=== PATIENT | male | born 1940 | race Caucasian/White ===

== ENCOUNTER 2018-06-12 14:26 | Inpatient (IN) | payer MEDICARE, BC ==
[2018-06-12] MEDS ORDERED: BABY ASPIRIN 81 MG CHEW PO ONE (15:30)
[2018-06-12] MEDS ORDERED: Sodium Chloride 0.9% 1000 ML 1,000 ML IV STA (15:30)
[2018-06-12 15:37] LABS: BASOPHIL % 0.1 % (0.0-0.4); Basophil (Absolute #) 0.01 (0-0.4); Eosinophil % 0.6 % (0.00-5.0); Eosinophil (Absolute #) 0.05 (0-0.5); Hemoglobin 11.3 gm/dl (12.5-18.0); INR 1.26 (0.8-3.0); Lymphocyte (Absolute #) 0.97 (1.0-4.6); Mean Corpuscular Hgb Concent. 32.3 g/dl (32-36); Mean Platelet Volume 10.4 fl (6-9.5); Monocyte (Absolute #) 1.31 (0.0-1.3); Monocytes % 16.3 % (0.0-12.0); PROTIME 14.7 SECONDS (8.83-12.87); Platelet Count 236 K/mm3 (150-450); Red Blood Count 3.89 M/mm3 (4.1-5.6); Red Cell Distribution Width 13.7 % (11.5-14.0); White Blood Count 8.1 K/mm3 (4.0-10.5)
--- NOTE | 2018-06-12 15:38 | ERPHSYRPT ---
- History of Present Illness Time Seen by Provider: 06/12/18 15:30 Source: patient Exam Limitations: no limitations Patient Subjective Stated Complaint: PT states "Yesterday I started to have this pain on the right side of my chest. When I breath deep it hurts." Triage Nursing Assessment: Pt alert and oriented X 3, skin pwd. PT ambualtes with a slow steady gait, able to speak in clear full sentences. Pt in no respiratory distress. Physician History: 77-year-old white male with history of diabetes type 2, arthritis, diverticulitis, GERD arrives with complaint of pain in the right side of his chest described as sharp worse with deep breathing symptoms since yesterday he denies any shortness of breath nausea or vomiting. 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, history of melanoma and other skin issues Past surgical history includes orthopedic surgery, back surgery Timing/Duration: yesterday Severity: moderate Modifying Factors: Improves With: other (worse with deep breathing) Associated Symptoms: chest pain (Pain right chest with breathing), No nausea, No vomiting, No abdominal pain, No shortness of breath, No heartburn, No diaphoresis, No cough, No chills, No fever, No headaches, No loss of appetite, No malaise, No syncope, No seizure, No weakness Allergies/Adverse Reactions: No Known Drug Allergies Allergy (Verified 06/12/18 14:41) Home Medications: Amitriptyline HCl 50 mg DAILY 02/28/14 [History] Amlodipine Bes/Olmesartan Med [Shamir 10-20 mg Tablet] 1 ea DAILY 02/28/14 [ History] Clonazepam [Klonopin] 1 mg DAILY 02/28/14 [History] Clopidogrel Bisulfate 75 mg [PLAVIX 75 MG Tablet] 75 mg DAILY 02/28/14 [ History] Colesevelam HCl 625 mg [Welchol 625 mg] 625 mg TID 02/28/14 [History] Enalapril/Hydrochlorothiazide [Enalapril-Hctz 5-12.5 mg Tab] 1 ea DAILY [History] Fluocinonide/Emollient Base [Fluocinonide-Emol 0.05% Cream] 60 gm BID 02/28/14 [ History] Glimepiride 4 mg [Amaryl 4 mg] 4 mg DAILY 02/28/14 [History] Hydrocodone Bit/Acetaminophen [[facility] 5-325 Tablet] 1 ea QID 02/28/14 [History] Meclizine HCl 25 mg [Antivert 25 mg] 25 mg TID 02/28/14 [History] Metformin HCl 500 mg [Glucophage 500 MG] 500 mg DAILY 02/28/14 [History] Tiagabine HCl 4 mg [Gabitril 4 MG] 4 mg DAILY 02/28/14 [History] cycloSPORINE [Restasis] 1 ea DAILY 02/28/14 [History] Hx Tetanus, Diphtheria Vaccination/Date Given: No Hx Influenza Vaccination/Date Given: No Hx Pneumococcal Vaccination/Date Given: No Immunizations Up to Date: Yes - Review of Systems Constitutional: No Fever, No Chills Eyes: No Symptoms Ears, Nose, & Throat: No Symptoms Respiratory: Other (pain right chest with breathing), No Cough, No Cyanosis, No Dyspnea, No Dyspnea on Exertion ([place]ANTE), No Stridor, No Wheezing Cardiac: Chest Pain ( sharp pain right chest with breathing), No Edema, No Palpitations, No Syncope, No Orthopnea, No PND, No Other Abdominal/Gastrointestinal: No Abdominal Pain, No Nausea, No Vomiting, No Diarrhea Genitourinary Symptoms: No Dysuria Musculoskeletal: No Back Pain, No Neck Pain Skin: No Symptoms, No Rash Neurological: No Dizziness, No Focal Weakness, No Sensory Changes Psychological: No Symptoms Endocrine: No Symptoms All Other Systems: Reviewed and Negative - Past Medical History Pertinent Past Medical History: Yes Endocrine Medical History: Diabetes Type II Musculoskeletal History: Arthritis, Osteoarthritis GI Medical History: Diverticulitis, GERD Other Medical History: blind in lt eye due to blood vessel issue. melanoma and other skin issues - Past Surgical History Past Surgical History: Yes Musculoskeletal: Orthopedic Surgery Other Surgical History: back surgery. esophageal stretch - Social History Smoking Status: Smoker, status unknown Exposure to second hand smoke: No Drug Use: none Patient Lives Alone: No - Nursing Vital Signs Nursing Vital Signs: Initial Vital Signs Temperature 100.9 F 06/12/18 14:34 Pulse Rate 132 H 06/12/18 14:34 Respiratory Rate 20 06/12/18 14:34 Blood Pressure 107/77 06/12/18 14:34 O2 Sat by Pulse Oximetry 94 L 06/12/18 14:34 Pain Scale Pain Intensity 6 - Physical Exam General Appearance: mild distress Eye Exam: PERRL/EOMI, eyes nml inspection Ears, Nose, Throat Exam: normal ENT inspection, TMs normal, pharynx normal, moist mucous membranes Neck Exam: normal inspection, non-tender, supple, full range of motion Respiratory Exam: airway intact, diminished breath sounds, other (Pain right chest with deep breathing), No chest tenderness, No lungs clear, No respiratory distress, No prolonged expirations, No crackles/rales, No rhonchi, No wheezing, No stridor, No pleural rub Cardiovascular Exam: normal heart sounds, normal peripheral pulses, capillary refill <2 sec Gastrointestinal/Abdomen Exam: soft, normal bowel sounds, No tenderness, No mass Back Exam: normal inspection, normal range of motion, No CVA tenderness, No vertebral tenderness Extremity Exam: normal inspection, normal range of motion, pelvis stable Neurologic Exam: alert, oriented x 3, cooperative, estimator binding II-XII nml as tested, normal mood/affect, nml cerebellar function, nml station & gait, sensation nml, No motor deficits Skin Exam: normal color, warm, dry, No rash Lymphatic Exam: No adenopathy SpO2 Interpretation: normal (94%) SpO2: 94 Oxygen Delivery: Room Air - Course Nursing assessment & vital signs reviewed: Yes EKG Interpreted by Me: RATE (134 bpm), Sinus Tach, Other (EKGsinus tachycardia, 134 bpm, axis indeterminate, no acute ST or T wave changes, right bundle branch block) - Radiology Exams Chest X-ray Interpretation: Discussed w/ radiologist (chest x-ray: New right lung airspace disease. Stable right hemidiaphragm elevation with adjacent discoid atelectasis. Remaining heart, lung, and bony thorax unremarkable) Ordered Tests: Active Orders 24 hr Category Date Time Status Behaviorist STAT Care 06/12/18 15:31 Active EKG-ER Only STAT Care 06/12/18 15:30 Active IV Insertion STAT Care 06/12/18 15:30 Active Pulse Oximetry (ED) STAT Care 06/12/18 15:30 Active CHEST 1 VIEW (PORTABLE) Stat Exams 06/12/18 15:31 Completed BLOOD CULTURE Stat Lab 06/12/18 15:45 Received CBC W DIFF Stat Lab 06/12/18 15:30 Completed CMP Stat Lab 06/12/18 15:30 Completed CULTURE,SPUTUM Stat Lab 06/12/18 15:33 Uncollected D-DIMER QUANTITATION Stat Lab 06/12/18 15:30 Completed Lactic Acid Stat Lab 06/12/18 15:32 Completed PROTIME WITH INR Stat Lab 06/12/18 15:30 Completed PTT Stat Lab 06/12/18 15:30 Completed TROPONIN Q3H Lab 06/12/18 15:30 Completed TROPONIN Q3H Lab 06/12/18 18:45 Ordered TROPONIN Q3H Lab 06/12/18 21:45 Ordered TROPONIN Q3H Lab 06/13/18 00:45 Ordered TROPONIN Q3H Lab 06/13/18 03:45 Ordered UA W/RFX UR CULTURE Stat Lab 06/12/18 15:33 Uncollected VENOUS BLOOD GAS Stat Lab 06/12/18 15:32 Completed Medication Summary Generic Name Dose Route Start Last Admin Trade Name Freq PRN Reason Stop Dose Admin Ceftriaxone Sodium/Dextrose 1 g in 50 mls @ 100 mls/hr 06/12/18 18:38 Rocephin 1 Gm-D5w 50 Ml Bag IV 06/12/18 19:07 STAT STA Sodium Chloride 1,000 mls @ 100 mls/hr 06/12/18 19:00 Sodium Chloride 0.9% 1000 Ml IV 07/12/18 18:59 .Q10H NBA Discontinued Medications Generic Name Dose Route Start Last Admin Trade Name Freq PRN Reason Stop Dose Admin Aspirin 324 mg 06/12/18 15:30 06/12/18 16:14 Baby Aspirin 81 Mg Chew PO 06/12/18 15:31 324 mg STAT ONE Administration Aspirin Confirm 06/12/18 16:13 Baby Aspirin 81 Mg Chew Administered 06/12/18 16:14 Dose 324 mg .ROUTE .STK-MED ONE Enoxaparin Sodium 100 mg 06/12/18 18:47 Enoxaparin Sodium 1 mg/kg (100 mg) 06/12/18 18:48 SQ STAT ONE Enoxaparin Sodium Confirm 06/12/18 18:53 Enoxaparin Sodium Administered 06/12/18 18:54 Dose 120 mg SQ .STK-MED ONE Sodium Chloride 1,000 mls @ 999 mls/hr 06/12/18 15:30 06/12/18 16:14 Sodium Chloride 0.9% 1000 Ml IV 06/12/18 16:30 999 mls/hr .Q1H1M STA Administration Sodium Chloride Confirm 06/12/18 16:13 Sodium Chloride 0.9% 1000 Ml Administered 06/12/18 16:14 Dose 1,000 mls @ ud .ROUTE .STK-MED ONE Ceftriaxone Sodium/Dextrose Confirm 06/12/18 18:53 Rocephin 1 Gm-D5w 50 Ml Bag Administered 06/12/18 18:54 Dose 1 g in 50 mls @ ud IV .STK-MED ONE Lab/Rad Data: Laboratory Result Diagrams 06/12/18 15:30 06/12/18 15:30 Laboratory Results 06/12/18 06/12/18 06/12/18 Range/Units 15:32 15:30 15:30 WBC (4.0-10.5) K/mm3 RBC (4.1-5.6) M/mm3 Hgb (12.5-18.0) gm/dl Hct (42-50) % MCV (78-100) fl MCH (26-32) pg MCHC (32-36) g/dl RDW (11.5-14.0) % Plt Count (150-450) K/mm3 MPV (6-9.5) fl Gran % (36.0-66.0) % Eos # (Auto) (0-0.5) Absolute Lymphs (auto) (1.0-4.6) Absolute Monos (auto) (0.0-1.3) Lymphocytes % (24.0-44.0) % Monocytes % (0.0-12.0) % Eosinophils % (0.00-5.0) % Basophils % (0.0-0.4) % Absolute Granulocytes (1.4-6.9) Basophils # (0-0.4) PT 14.7 H (8.83-12.87) SECONDS INR 1.26 (0.8-3.0) APTT 29.8 (24.1-36.1) SECONDS D-Dimer 2324 H* (215-500) ng/mL pO2/FiO2 Ratio 21.0 % VBG pH 7.38 (7.32-7.42) VBG pCO2 at Pat Temp 52 (42-55) mm/Hg VBG pO2 at Pat Temp 26 (25-40) mm/Hg VBG HCO3 30.8 H* (22-28) meq/L VBG O2 Sat (Silvia) 51.1 L (95-100) VBG Base Excess 4.6 H (-2.0-2.0) VBG Hemoglobin 11.7 VBG Carboxyhemoglobin 3.4 (0.0-6.9) % T HGB POC Potassium 4.0 (3.5-5.1) Sodium (137-145) mmol/L Potassium (3.5-5.1) mmol/L Chloride (98-107) mmol/L Carbon Dioxide (22-30) mmol/L Anion Gap (5-15) MEQ/L BUN (9-20) mg/dL Creatinine (0.66-1.25) mg/dL Estimated GFR ML/MIN Glucose (74-106) mg/dL Lactic Acid 1.8 (0.4-2.0) Calcium (8.4-10.2) mg/dL Total Bilirubin (0.2-1.3) mg/dL AST (17-59) U/L ALT (0-50) U/L Alkaline Phosphatase (38-126) U/L Troponin I 0.012 (0.000-0.034) ng/mL Serum Total Protein (6.3-8.2) g/dL Albumin (3.5-5.0) g/dL 06/12/18 06/12/18 Range/Units 15:30 15:30 WBC 8.1 (4.0-10.5) K/mm3 RBC 3.89 L (4.1-5.6) M/mm3 Hgb 11.3 L (12.5-18.0) gm/dl Hct 35.0 L (42-50) % MCV 90.0 (78-100) fl MCH 29.0 (26-32) pg MCHC 32.3 (32-36) g/dl RDW 13.7 (11.5-14.0) % Plt Count 236 (150-450) K/mm3 MPV 10.4 H (6-9.5) fl Gran % 71.0 H (36.0-66.0) % Eos # (Auto) 0.05 (0-0.5) Absolute Lymphs (auto) 0.97 L (1.0-4.6) Absolute Monos (auto) 1.31 H (0.0-1.3) Lymphocytes % 12.0 L (24.0-44.0) % Monocytes % 16.3 H (0.0-12.0) % Eosinophils % 0.6 (0.00-5.0) % Basophils % 0.1 (0.0-0.4) % Absolute Granulocytes 5.72 (1.4-6.9) Basophils # 0.01 (0-0.4) PT (8.83-12.87) SECONDS INR (0.8-3.0) APTT (24.1-36.1) SECONDS D-Dimer (215-500) ng/mL pO2/FiO2 Ratio % VBG pH (7.32-7.42) VBG pCO2 at Pat Temp (42-55) mm/Hg VBG pO2 at Pat Temp (25-40) mm/Hg VBG HCO3 (22-28) meq/L VBG O2 Sat (Silvia) (95-100) VBG Base Excess (-2.0-2.0) VBG Hemoglobin VBG Carboxyhemoglobin (0.0-6.9) % T HGB POC Potassium (3.5-5.1) Sodium 141 (137-145) mmol/L Potassium 3.9 (3.5-5.1) mmol/L Chloride 100 (98-107) mmol/L Carbon Dioxide 29 (22-30) mmol/L Anion Gap 15.8 H (5-15) MEQ/L BUN 30 H (9-20) mg/dL Creatinine 1.73 H (0.66-1.25) mg/dL Estimated GFR 40.7 ML/MIN Glucose 164 H (74-106) mg/dL Lactic Acid (0.4-2.0) Calcium 8.4 (8.4-10.2) mg/dL Total Bilirubin 0.60 (0.2-1.3) mg/dL AST 29 (17-59) U/L ALT 22 (0-50) U/L Alkaline Phosphatase 123 (38-126) U/L Troponin I (0.000-0.034) ng/mL Serum Total Protein 6.9 (6.3-8.2) g/dL Albumin 4.1 (3.5-5.0) g/dL - Progress Progress: improved Progress Note: 06/12/18 18:43 77-year-old white male with history of diabetes type 2, arthritis, diverticulitis, GERD arrives with complaint of pain in his right lateral chest worse with breathing symptoms since yesterday Patient really denies shortness of breath or nausea Patient does have pain with deep breathing patient has a right new lung airspace disease EKG initially sinus tachycardia 1 34 bpm indeterminate axis probable right complete on a branch block no acute ST or T wave changes. Patient's troponin is within normal limits Patient unfortunately has an elevated d-dimer of over 2000 Patient with a GFR of around 43 therefore I am unable to do CTA chest. Patient does feel better after receiving IV fluids in the emergency room I have ordered Rocephin 1 g IV blood cultures have been ordered as well as urine. I've discussed case with Dr. Tobias he would like the patient to be placed on telemetry observation Rocephin and Zithromax. Will place patient on Levaquin secondary to increased d-dimer and risk for PE. - Departure Time of Disposition: 18:56 Departure Disposition: Observation Clinical Impression: right sided pneumonia, Pleuritic chest pain, Elevated d-dimer Condition: Fair Critical Care Time: No Referrals: CHRISTOPHER TOBIAS MD [Primary Care Provider] -
[2018-06-12 15:40] LABS: PTT 29.8 SECONDS (24.1-36.1)
[2018-06-12 15:43] LABS: ALBUMIN 4.1 g/dL (3.5-5.0); ANION GAP 15.8 MEQ/L (5-15); BILIRUBIN,TOTAL 0.6 mg/dL (0.2-1.3); Calcium 8.4 mg/dL (8.4-10.2); Creatinine 1 1.73 mg/dL (0.66-1.25); Potassium 3.9 mmol/L (3.5-5.1); Total Protein 6.9 g/dL (6.3-8.2)
[2018-06-12 15:50] LABS: Lactic Acid 1.8 (0.4-2.0); VBG BASE EXCESS 4.6 (-2.0-2.0); VBG CARBOXYHEMOGLOBIN 3.4 % T HGB (0.0-6.9); VBG HCO3- 30.8 meq/L (22-28); VBG HEMOGLOBIN 11.7; VBG O2 SATURATION 51.1 (95-100); VBG pH 7.38 (7.32-7.42)
[2018-06-12] MEDS ORDERED: Sodium Chloride 0.9% 1000 ML 1,000 ML ONE (16:13)
[2018-06-12] MEDS ORDERED: BABY ASPIRIN 81 MG CHEW ONE (16:13)
--- NOTE | 2018-06-12 16:44 | XRAY ---
Indication: Chest pain. Comparison: February 28, 2014. Portable chest demonstrates new right lung air space disease. Stable right hemidiaphragm elevation with adjacent discoid atelectasis. Remaining heart, lungs, and bony thorax unremarkable.
[2018-06-12] MEDS ORDERED: ROCEPHIN 1 Gm-D5w 50 ml Bag** 1 G/50 ML IVPB IV STA (18:38)
[2018-06-12] MEDS ORDERED: ENOXAPARIN SODIUM SQ ONE ×2 (18:47→18:53)
[2018-06-12] MEDS ORDERED: ROCEPHIN 1 Gm-D5w 50 ml Bag** 1 G/50 ML IVPB IV ONE (18:53)
[2018-06-12] MEDS ORDERED: Sodium Chloride 0.9% 1000 ML 1,000 ML IV SCH (19:00)
[2018-06-12 19:21] LABS: Appearance CLEAR (CLEAR); Bacteria RARE /HPF (NEGATIVE); Bilirubin NEGATIVE (NEGATIVE); Blood NEGATIVE Ery/ul (0-5); Epithelial Cells RARE /HPF (FEW); Glucose NEGATIVE (NEGATIVE); Ketones NEGATIVE (NEGATIVE); Leukocyte Esterase NEGATIVE (NEGATIVE); Mucus SLIGHT /HPF (NEGATIVE); Nitrite NEGATIVE (NEGATIVE); Protein,Urine Dip NEGATIVE (Negative); RBC 0-2 /HPF (0-2); Specific Gravity 1.015 (1.005-1.025); Urobilinogen NEGATIVE mg/dL (0-1)
[2018-06-12] MEDS ORDERED: Zofran 4 MG/2 ML VIAL IV PRN (19:42)
[2018-06-12] MEDS ORDERED: ENOXAPARIN SODIUM SQ SCH (19:42)
[2018-06-12] MEDS ORDERED: MORPHINE SULFATE 2 MG INJ IV PRN (19:42)
[2018-06-12] MEDS ORDERED: KLONOPIN ONE (22:09)
[2018-06-12] MEDS ORDERED: Lantus Insulin ONE (22:11)
[2018-06-12] MEDS ORDERED: Lantus Insulin SQ SCH (22:24)
[2018-06-12] MEDS ORDERED: KLONOPIN PO SCH (22:24)
[2018-06-12] MEDS ORDERED: Sodium Chloride 0.9% 1000 ML 0 ML ONE (22:42)
[2018-06-13 03:52] LABS: BASOPHIL % 0.2 % (0.0-0.4); Basophil (Absolute #) 0.01 (0-0.4); Eosinophil % 1.1 % (0.00-5.0); Eosinophil (Absolute #) 0.07 (0-0.5); Granulocytes % 67.8 % (36.0-66.0); Hematocrit 32.6 % (42-50); Hemoglobin 10.5 gm/dl (12.5-18.0); Lymphocyte (Absolute #) 0.92 (1.0-4.6); Lymphocytes % 14.3 % (24.0-44.0); Mean Cell Volume 89.6 fl (78-100); Mean Corpuscular Hemoglobin 28.8 pg (26-32); Mean Corpuscular Hgb Concent. 32.2 g/dl (32-36); Mean Platelet Volume 9.5 fl (6-9.5); Monocyte (Absolute #) 1.07 (0.0-1.3); Monocytes % 16.6 % (0.0-12.0); Platelet Count 232 K/mm3 (150-450); Red Blood Count 3.64 M/mm3 (4.1-5.6); Red Cell Distribution Width 13.8 % (11.5-14.0); White Blood Count 6.4 K/mm3 (4.0-10.5)
[2018-06-13 04:15] LABS: ALBUMIN 3.8 g/dL (3.5-5.0); ANION GAP 11.6 MEQ/L (5-15); BILIRUBIN,TOTAL 0.7 mg/dL (0.2-1.3); Calcium 7.7 mg/dL (8.4-10.2); Creatinine 1 1.47 mg/dL (0.66-1.25); Potassium 3.8 mmol/L (3.5-5.1)
[2018-06-13] MEDS ORDERED: PROVENTIL 2.5 MG/3 ML NEB IH ONE (07:11)
[2018-06-13] MEDS ORDERED: NORCO 5/325 MG PO PRN (07:15)
[2018-06-13] MEDS: PROVENTIL 2.5 MG/3 ML NEB IH SCH (07:20)
[2018-06-13] MEDS ORDERED: MEDICATION INTERVENTION PO SCH (07:45)
[2018-06-13] MEDS ORDERED: MEDICATION INTERVENTION MC SCH (07:45)
[2018-06-13] MEDS: NovoLOG Insulin SQ PRN ×2 (08:14→21:28)
[2018-06-13] MEDS ORDERED: FLUOCINONIDE TOP SCH (10:00)
[2018-06-13] MEDS ORDERED: Vasotec 10 MG PO SCH (10:00)
[2018-06-13] MEDS ORDERED: EMOLLIENT BASE TOP SCH (10:00)
[2018-06-13] MEDS ORDERED: hydroDIURIL 25 MG PO SCH (10:00)
[2018-06-13] MEDS ORDERED: COLESEVELAM HCL 625 MG PO SCH (10:00)
[2018-06-13] MEDS ORDERED: HYDROCHLOROTHIAZIDE PO SCH (10:00)
[2018-06-13] MEDS ORDERED: Vasotec 5 MG PO SCH (10:00)
[2018-06-13] MEDS ORDERED: ENALAPRIL PO SCH (10:00)
[2018-06-13] MEDS ORDERED: CYCLOSPORINE OP SCH (10:00)
[2018-06-13] MEDS ORDERED: OLMESARTAN MED PO SCH (10:00)
[2018-06-13] MEDS ORDERED: AMLODIPINE BES PO SCH (10:00)
[2018-06-13] MEDS: Benicar 20 MG PO SCH (10:24)
[2018-06-13] MEDS: NORVASC 5 MG PO SCH (10:25)
[2018-06-13] MEDS: KENALOG 0.1% CREAM 15 GM TP SCH ×2 (10:25→21:27)
[2018-06-13] MEDS: ENOXAPARIN SODIUM SQ SCH ×2 (10:25→21:23)
[2018-06-13] MEDS: ROCEPHIN 1 Gm-D5w 50 ml Bag** 1 G/50 ML IVPB IV SCH (10:26)
[2018-06-13] MEDS: Zithromax 500 MG/ 250 ML NaCl Premix 500 MG/250 ML IVPB IV SCH (11:14)
--- NOTE | 2018-06-13 11:19 | PCM.HP ---
History of Present Illness - Chief Complaint Chief Complaint: pneumonia, chest pain, increased d-dimer History of Present Illness: Mr.SULLIVAN MENESES is a 77 year old male who presented to the ER last night with a 2 day history of progressive pain in the right side of his chest. Pain was sharp and stabbing in nature and worsened with coughing or deep inspiration. He has not had any cough, denied any fever prior to arrival although he had a fever in the ER. He denies recent travel, no prolonged immobilization, no swelling or pain in the lower extremities. - Review of Systems Constitutional: No Fever, No Chills Eyes: No Symptoms Ears, Nose, & Throat: No Symptoms Respiratory: No Cough, No Short Of Breath Cardiac: Chest Pain, No Edema, No Palpitations, No Syncope Abdominal/Gastrointestinal: No Abdominal Pain, No Nausea, No Vomiting, No Diarrhea Genitourinary Symptoms: No Dysuria Skin: No Rash All Other Systems: Reviewed and Negative Medications & Allergies Home Medications: Home Medication List Amitriptyline HCl 50 mg PO HS 02/28/14 [History Confirmed 06/13/18] Amlodipine Bes/Olmesartan Med [Shamir 10-20 mg Tablet] 1 tab PO DAILY 02/28/14 [ History Confirmed 06/13/18] Clonazepam [Klonopin] 1 mg PO BID 02/28/14 [History Confirmed 06/13/18] Clopidogrel Bisulfate 75 mg [PLAVIX 75 MG Tablet] 75 mg PO DAILY 02/28/14 [History Confirmed 06/13/18] Colesevelam HCl 625 mg [Welchol 625 mg] 3 tab PO BID 02/28/14 [History Confirmed 06/13/18] Fluocinonide/Emollient Base [Fluocinonide-Emol 0.05% Cream] 60 gm BID 02/28/14 [ History Confirmed 06/12/18] Glimepiride 4 mg [Amaryl 4 mg] 4 mg PO DAILY 02/28/14 [History Confirmed 06/13/18] Metformin HCl 500 mg [Glucophage 500 MG] 500 mg PO BID 02/28/14 [History Confirmed 06/13/18] cycloSPORINE [Restasis] 2 drops DAILY 02/28/14 [History Confirmed 06/12/18] Insulin Glargine,Hum.rec.anlog [Lantus] 20 unit SQ EVENING MEAL 06/12/18 [ History Confirmed 06/12/18] Enalapril/Hydrochlorothiazide [Enalapril-Hctz 10-25 mg Tablet] 1 each PO DAILY 06/13/18 [History Confirmed 06/13/18] Furosemide 20 mg [Lasix 20 mg] 20 mg PO DAILY 06/13/18 [History Confirmed 06/13/18] Gabapentin [Neurontin] 300 mg PO TID 06/13/18 [History Confirmed 06/13/18] Hydrocodone Bit/Acetaminophen [Hydrocodon-Acetaminoph 7.5-325] 1 each PO QIDPRN PRN 06/13/18 [History Confirmed 06/13/18] Potassium Chloride 10 Meq Tab* [Klor Con 10 MEQ] 20 meq PO DAILY 06/13/18 [ History Confirmed 06/13/18] Allergies/Adverse Reactions: Allergies Allergy/AdvReac Type Severity Reaction Status Date / Time No Known Drug Allergies Allergy Verified 06/12/18 14:41 - Past Medical History Past Medical History: Yes Neurological History: No Pertinent History ENT History: Cataracts Cardiac History: Hypertension Respiratory History: Pneumonia Endocrine Medical History: Diabetes Type II Musculoskelatal History: Arthritis, Fractures GI Medical History: Diverticulitis, GERD History: No Pertinent History Pyscho-Social History: Depression, Other Male Reproductive Disorders: No Pertinent History Comment: broken fingers, jose, back surgery - Past Surgical History Past Surgical History: Yes Neuro Surgical History: No Pertinent History Cardiac History: No Pertinent History Respiratory Surgery: No Pertinent History GI Surgical History: No Pertinent History Genitourinary Surgical Hx: No Pertinent History Musculskeletal Surgical Hx: Joint Replacement Male Surgical History: No Pertinent History Other Surgical History: lt knee replacement, 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 - Social History Smoking Status: Former smoker Exposure to second hand smoke: No Alcohol: None Drug Use: none - Physical Exam Vital Signs: Vital Signs - 24 hr Temp Pulse Pulse Resp BP Pulse Ox 06/13/18 07:26 77 18 95 06/13/18 06:43 98.0 F 81 18 118/57 95 06/13/18 04:00 20 06/13/18 03:54 98.5 F 82 20 110/56 94 L 06/13/18 02:01 95 06/13/18 00:00 98.4 F 77 20 103/58 90 L 06/12/18 20:30 98.5 F 83 20 120/63 95 06/12/18 20:14 81 20 90 L 06/12/18 20:11 98.5 F 83 20 120/63 95 06/12/18 19:04 99.6 F 78 16 123/67 98 06/12/18 18:56 94 L 06/12/18 17:23 89 23 108/68 93 L 06/12/18 16:20 118 H 18 100/67 92 L 06/12/18 14:34 100.9 F 135 H 132 H 20 107/77 94 L Oxygen-Last 24 hours O2 Percentage 2 Liters = 28% General Appearance: no apparent distress, alert Neurologic Exam: alert, oriented x 3, cooperative, normal mood/affect, nml cerebellar function, nml station & gait, sensation nml, No motor deficits Eye Exam: PERRL/EOMI, eyes nml inspection Respiratory Exam: normal breath sounds, lungs clear, No respiratory distress Cardiovascular Exam: regular rate/rhythm, normal heart sounds, normal peripheral pulses Gastrointestinal/Abdomen Exam: soft, normal bowel sounds, No tenderness, No mass Extremity Exam: normal inspection, normal range of motion, pelvis stable Skin Exam: normal color, warm, dry, No rash Results - Labs Lab/Micro Results: Accuchecks Date 06/12/18 Time 21:00 Accucheck Value: 348 Accucheck Value: 118 Lab Results-Last 24 Hours 06/12/18 06/12/18 06/12/18 Range/Units 15:30 15:30 15:30 WBC 8.1 (4.0-10.5) K/mm3 RBC 3.89 L (4.1-5.6) M/mm3 Hgb 11.3 L (12.5-18.0) gm/dl Hct 35.0 L (42-50) % MCV 90.0 (78-100) fl MCH 29.0 (26-32) pg MCHC 32.3 (32-36) g/dl RDW 13.7 (11.5-14.0) % Plt Count 236 (150-450) K/mm3 MPV 10.4 H (6-9.5) fl Gran % 71.0 H (36.0-66.0) % Eos # (Auto) 0.05 (0-0.5) Absolute Lymphs (auto) 0.97 L (1.0-4.6) Absolute Monos (auto) 1.31 H (0.0-1.3) Lymphocytes % 12.0 L (24.0-44.0) % Monocytes % 16.3 H (0.0-12.0) % Eosinophils % 0.6 (0.00-5.0) % Basophils % 0.1 (0.0-0.4) % Absolute Granulocytes 5.72 (1.4-6.9) Basophils # 0.01 (0-0.4) PT 14.7 H (8.83-12.87) SECONDS INR 1.26 (0.8-3.0) APTT 29.8 (24.1-36.1) SECONDS D-Dimer 2324 H* (215-500) ng/mL pO2/FiO2 Ratio % VBG pH (7.32-7.42) VBG pCO2 at Pat Temp (42-55) mm/Hg VBG pO2 at Pat Temp (25-40) mm/Hg VBG HCO3 (22-28) meq/L VBG O2 Sat (Silvia) (95-100) VBG Base Excess (-2.0-2.0) VBG Hemoglobin VBG Carboxyhemoglobin (0.0-6.9) % T HGB POC Potassium (3.5-5.1) Sodium 141 (137-145) mmol/L Potassium 3.9 (3.5-5.1) mmol/L Chloride 100 (98-107) mmol/L Carbon Dioxide 29 (22-30) mmol/L Anion Gap 15.8 H (5-15) MEQ/L BUN 30 H (9-20) mg/dL Creatinine 1.73 H (0.66-1.25) mg/dL Estimated GFR 40.7 ML/MIN Glucose 164 H (74-106) mg/dL Hemoglobin A1c (4.5-6.0) % Lactic Acid (0.4-2.0) Calcium 8.4 (8.4-10.2) mg/dL Total Bilirubin 0.60 (0.2-1.3) mg/dL AST 29 (17-59) U/L ALT 22 (0-50) U/L Alkaline Phosphatase 123 (38-126) U/L Troponin I (0.000-0.034) ng/mL Serum Total Protein 6.9 (6.3-8.2) g/dL Albumin 4.1 (3.5-5.0) g/dL Urine Color (YELLOW) Urine Appearance (CLEAR) Urine pH (5-6) Ur Specific [place] (1.005-1.025) Urine Protein (Negative) Urine Ketones (NEGATIVE) Urine Blood (0-5) Govind/ul Urine Nitrite (NEGATIVE) Urine Bilirubin (NEGATIVE) Urine Urobilinogen (0-1) mg/dL Ur Leukocyte Esterase (NEGATIVE) Urine WBC (Auto) (0-5) /HPF Urine RBC (Auto) (0-2) /HPF U Hyaline Cast (Auto) (0-2) /LPF U Epithel Cells (Auto) (FEW) /HPF Urine Bacteria (Auto) (NEGATIVE) /HPF Other Casts (Auto) (NEGATIVE) /LPF Urine Mucus (Auto) (NEGATIVE) /HPF Urine Culture Reflexed (NO) Urine Glucose (NEGATIVE) mg/dL 06/12/18 06/12/18 06/12/18 Range/Units 15:30 15:32 18:50 WBC (4.0-10.5) K/mm3 RBC (4.1-5.6) M/mm3 Hgb (12.5-18.0) gm/dl Hct (42-50) % MCV (78-100) fl MCH (26-32) pg MCHC (32-36) g/dl RDW (11.5-14.0) % Plt Count (150-450) K/mm3 MPV (6-9.5) fl Gran % (36.0-66.0) % Eos # (Auto) (0-0.5) Absolute Lymphs (auto) (1.0-4.6) Absolute Monos (auto) (0.0-1.3) Lymphocytes % (24.0-44.0) % Monocytes % (0.0-12.0) % Eosinophils % (0.00-5.0) % Basophils % (0.0-0.4) % Absolute Granulocytes (1.4-6.9) Basophils # (0-0.4) PT (8.83-12.87) SECONDS INR (0.8-3.0) APTT (24.1-36.1) SECONDS D-Dimer (215-500) ng/mL pO2/FiO2 Ratio 21.0 % VBG pH 7.38 (7.32-7.42) VBG pCO2 at Pat Temp 52 (42-55) mm/Hg VBG pO2 at Pat Temp 26 (25-40) mm/Hg VBG HCO3 30.8 H* (22-28) meq/L VBG O2 Sat (Silvia) 51.1 L (95-100) VBG Base Excess 4.6 H (-2.0-2.0) VBG Hemoglobin 11.7 VBG Carboxyhemoglobin 3.4 (0.0-6.9) % T HGB POC Potassium 4.0 (3.5-5.1) Sodium (137-145) mmol/L Potassium (3.5-5.1) mmol/L Chloride (98-107) mmol/L Carbon Dioxide (22-30) mmol/L Anion Gap (5-15) MEQ/L BUN (9-20) mg/dL Creatinine (0.66-1.25) mg/dL Estimated GFR ML/MIN Glucose (74-106) mg/dL Hemoglobin A1c (4.5-6.0) % Lactic Acid 1.8 (0.4-2.0) Calcium (8.4-10.2) mg/dL Total Bilirubin (0.2-1.3) mg/dL AST (17-59) U/L ALT (0-50) U/L Alkaline Phosphatase (38-126) U/L Troponin I 0.012 0.018 (0.000-0.034) ng/mL Serum Total Protein (6.3-8.2) g/dL Albumin (3.5-5.0) g/dL Urine Color (YELLOW) Urine Appearance (CLEAR) Urine pH (5-6) Ur Specific [place] (1.005-1.025) Urine Protein (Negative) Urine Ketones (NEGATIVE) Urine Blood (0-5) Govind/ul Urine Nitrite (NEGATIVE) Urine Bilirubin (NEGATIVE) Urine Urobilinogen (0-1) mg/dL Ur Leukocyte Esterase (NEGATIVE) Urine WBC (Auto) (0-5) /HPF Urine RBC (Auto) (0-2) /HPF U Hyaline Cast (Auto) (0-2) /LPF U Epithel Cells (Auto) (FEW) /HPF Urine Bacteria (Auto) (NEGATIVE) /HPF Other Casts (Auto) (NEGATIVE) /LPF Urine Mucus (Auto) (NEGATIVE) /HPF Urine Culture Reflexed (NO) Urine Glucose (NEGATIVE) mg/dL 06/12/18 06/12/18 06/13/18 Range/Units 19:00 22:03 01:20 WBC (4.0-10.5) K/mm3 RBC (4.1-5.6) M/mm3 Hgb (12.5-18.0) gm/dl Hct (42-50) % MCV (78-100) fl MCH (26-32) pg MCHC (32-36) g/dl RDW (11.5-14.0) % Plt Count (150-450) K/mm3 MPV (6-9.5) fl Gran % (36.0-66.0) % Eos # (Auto) (0-0.5) Absolute Lymphs (auto) (1.0-4.6) Absolute Monos (auto) (0.0-1.3) Lymphocytes % (24.0-44.0) % Monocytes % (0.0-12.0) % Eosinophils % (0.00-5.0) % Basophils % (0.0-0.4) % Absolute Granulocytes (1.4-6.9) Basophils # (0-0.4) PT (8.83-12.87) SECONDS INR (0.8-3.0) APTT (24.1-36.1) SECONDS D-Dimer (215-500) ng/mL pO2/FiO2 Ratio % VBG pH (7.32-7.42) VBG pCO2 at Pat Temp (42-55) mm/Hg VBG pO2 at Pat Temp (25-40) mm/Hg VBG HCO3 (22-28) meq/L VBG O2 Sat (Silvia) (95-100) VBG Base Excess (-2.0-2.0) VBG Hemoglobin VBG Carboxyhemoglobin (0.0-6.9) % T HGB POC Potassium (3.5-5.1) Sodium (137-145) mmol/L Potassium (3.5-5.1) mmol/L Chloride (98-107) mmol/L Carbon Dioxide (22-30) mmol/L Anion Gap (5-15) MEQ/L BUN (9-20) mg/dL Creatinine (0.66-1.25) mg/dL Estimated GFR ML/MIN Glucose (74-106) mg/dL Hemoglobin A1c (4.5-6.0) % Lactic Acid (0.4-2.0) Calcium (8.4-10.2) mg/dL Total Bilirubin (0.2-1.3) mg/dL AST (17-59) U/L ALT (0-50) U/L Alkaline Phosphatase (38-126) U/L Troponin I 0.018 0.020 (0.000-0.034) ng/mL Serum Total Protein (6.3-8.2) g/dL Albumin (3.5-5.0) g/dL Urine Color YELLOW (YELLOW) Urine Appearance CLEAR (CLEAR) Urine pH 5.0 (5-6) Ur Specific [place] 1.015 (1.005-1.025) Urine Protein NEGATIVE (Negative) Urine Ketones NEGATIVE (NEGATIVE) Urine Blood NEGATIVE (0-5) Govind/ul Urine Nitrite NEGATIVE (NEGATIVE) Urine Bilirubin NEGATIVE (NEGATIVE) Urine Urobilinogen NEGATIVE (0-1) mg/dL Ur Leukocyte Esterase NEGATIVE (NEGATIVE) Urine WBC (Auto) 6-10 (0-5) /HPF Urine RBC (Auto) 0-2 (0-2) /HPF U Hyaline Cast (Auto) 3-5 (0-2) /LPF U Epithel Cells (Auto) RARE (FEW) /HPF Urine Bacteria (Auto) RARE (NEGATIVE) /HPF Other Casts (Auto) NEGATIVE (NEGATIVE) /LPF Urine Mucus (Auto) SLIGHT (NEGATIVE) /HPF Urine Culture Reflexed NO (NO) Urine Glucose NEGATIVE (NEGATIVE) mg/dL 06/13/1818 06/13/18 Range/Units 03:48 03:48 03:48 WBC 6.4 (4.0-10.5) K/mm3 RBC 3.64 L (4.1-5.6) M/mm3 Hgb 10.5 L (12.5-18.0) gm/dl Hct 32.6 L (42-50) % MCV 89.6 (78-100) fl MCH 28.8 (26-32) pg MCHC 32.2 (32-36) g/dl RDW 13.8 (11.5-14.0) % Plt Count 232 (150-450) K/mm3 MPV 9.5 (6-9.5) fl Gran % 67.8 H (36.0-66.0) % Eos # (Auto) 0.07 (0-0.5) Absolute Lymphs (auto) 0.92 L (1.0-4.6) Absolute Monos (auto) 1.07 (0.0-1.3) Lymphocytes % 14.3 L (24.0-44.0) % Monocytes % 16.6 H (0.0-12.0) % Eosinophils % 1.1 (0.00-5.0) % Basophils % 0.2 (0.0-0.4) % Absolute Granulocytes 4.37 (1.4-6.9) Basophils # 0.01 (0-0.4) PT (8.83-12.87) SECONDS INR (0.8-3.0) APTT (24.1-36.1) SECONDS D-Dimer (215-500) ng/mL pO2/FiO2 Ratio % VBG pH (7.32-7.42) VBG pCO2 at Pat Temp (42-55) mm/Hg VBG pO2 at Pat Temp (25-40) mm/Hg VBG HCO3 (22-28) meq/L VBG O2 Sat (Silvia) (95-100) VBG Base Excess (-2.0-2.0) VBG Hemoglobin VBG Carboxyhemoglobin (0.0-6.9) % T HGB POC Potassium (3.5-5.1) Sodium 140 (137-145) mmol/L Potassium 3.8 (3.5-5.1) mmol/L Chloride 103 (98-107) mmol/L Carbon Dioxide 29 (22-30) mmol/L Anion Gap 11.6 (5-15) MEQ/L BUN 30 H (9-20) mg/dL Creatinine 1.47 H (0.66-1.25) mg/dL Estimated GFR 49.1 ML/MIN Glucose 108 H (74-106) mg/dL Hemoglobin A1c (4.5-6.0) % Lactic Acid (0.4-2.0) Calcium 7.7 L (8.4-10.2) mg/dL Total Bilirubin 0.70 (0.2-1.3) mg/dL AST 23 (17-59) U/L ALT 20 (0-50) U/L Alkaline Phosphatase 95 (38-126) U/L Troponin I 0.018 (0.000-0.034) ng/mL Serum Total Protein 7.0 (6.3-8.2) g/dL Albumin 3.8 (3.5-5.0) g/dL Urine Color (YELLOW) Urine Appearance (CLEAR) Urine pH (5-6) Ur Specific [place] (1.005-1.025) Urine Protein (Negative) Urine Ketones (NEGATIVE) Urine Blood (0-5) Govind/ul Urine Nitrite (NEGATIVE) Urine Bilirubin (NEGATIVE) Urine Urobilinogen (0-1) mg/dL Ur Leukocyte Esterase (NEGATIVE) Urine WBC (Auto) (0-5) /HPF Urine RBC (Auto) (0-2) /HPF U Hyaline Cast (Auto) (0-2) /LPF U Epithel Cells (Auto) (FEW) /HPF Urine Bacteria (Auto) (NEGATIVE) /HPF Other Casts (Auto) (NEGATIVE) /LPF Urine Mucus (Auto) (NEGATIVE) /HPF Urine Culture Reflexed (NO) Urine Glucose (NEGATIVE) mg/dL 06/13/18 Range/Units 05:00 WBC (4.0-10.5) K/mm3 RBC (4.1-5.6) M/mm3 Hgb (12.5-18.0) gm/dl Hct (42-50) % MCV (78-100) fl MCH (26-32) pg MCHC (32-36) g/dl RDW (11.5-14.0) % Plt Count (150-450) K/mm3 MPV (6-9.5) fl Gran % (36.0-66.0) % Eos # (Auto) (0-0.5) Absolute Lymphs (auto) (1.0-4.6) Absolute Monos (auto) (0.0-1.3) Lymphocytes % (24.0-44.0) % Monocytes % (0.0-12.0) % Eosinophils % (0.00-5.0) % Basophils % (0.0-0.4) % Absolute Granulocytes (1.4-6.9) Basophils # (0-0.4) PT (8.83-12.87) SECONDS INR (0.8-3.0) APTT (24.1-36.1) SECONDS D-Dimer (215-500) ng/mL pO2/FiO2 Ratio % VBG pH (7.32-7.42) VBG pCO2 at Pat Temp (42-55) mm/Hg VBG pO2 at Pat Temp (25-40) mm/Hg VBG HCO3 (22-28) meq/L VBG O2 Sat (Silvia) (95-100) VBG Base Excess (-2.0-2.0) VBG Hemoglobin VBG Carboxyhemoglobin (0.0-6.9) % T HGB POC Potassium (3.5-5.1) Sodium (137-145) mmol/L Potassium (3.5-5.1) mmol/L Chloride (98-107) mmol/L Carbon Dioxide (22-30) mmol/L Anion Gap (5-15) MEQ/L BUN (9-20) mg/dL Creatinine (0.66-1.25) mg/dL Estimated GFR ML/MIN Glucose (74-106) mg/dL Hemoglobin A1c 6.90 H (4.5-6.0) % Lactic Acid (0.4-2.0) Calcium (8.4-10.2) mg/dL Total Bilirubin (0.2-1.3) mg/dL AST (17-59) U/L ALT (0-50) U/L Alkaline Phosphatase (38-126) U/L Troponin I (0.000-0.034) ng/mL Serum Total Protein (6.3-8.2) g/dL Albumin (3.5-5.0) g/dL Urine Color (YELLOW) Urine Appearance (CLEAR) Urine pH (5-6) Ur Specific [place] (1.005-1.025) Urine Protein (Negative) Urine Ketones (NEGATIVE) Urine Blood (0-5) Govind/ul Urine Nitrite (NEGATIVE) Urine Bilirubin (NEGATIVE) Urine Urobilinogen (0-1) mg/dL Ur Leukocyte Esterase (NEGATIVE) Urine WBC (Auto) (0-5) /HPF Urine RBC (Auto) (0-2) /HPF U Hyaline Cast (Auto) (0-2) /LPF U Epithel Cells (Auto) (FEW) /HPF Urine Bacteria (Auto) (NEGATIVE) /HPF Other Casts (Auto) (NEGATIVE) /LPF Urine Mucus (Auto) (NEGATIVE) /HPF Urine Culture Reflexed (NO) Urine Glucose (NEGATIVE) mg/dL Accuchecks Date 06/12/18 Time 21:00 Accucheck Value: 348 Accucheck Value: 118 - Radiology Impressions Radiology Exams & Impressions: Radiology Procedures Category Date Time Status CHEST 1 VIEW (PORTABLE) Stat Exams 06/12/18 15:31 Completed CTA CHEST W AND/OR WO [CT] Urgent Exams 06/13/18 11:13 Ordered - Other Procedures and Tests Respiratory Therapy 06/12/18 20:40 Peak Expiratory Flow Rate ONCE Respiratory Therapy Assessment DAILY 06/13/18 01:24 Oxygen NASAL CANNULA 2 lpm Assessment/Plan (1) Pneumonia Current Visit: Yes Status: Acute Onset Date: ~06/12/18 Assessment & Plan: on rocephin and zithromax at this time, symptoms are not suggestive but chest xray shows airspace disease and was febrile on arrival. will continue current treatment. Code(s): J18.9 - PNEUMONIA, UNSPECIFIED ORGANISM (2) Elevated d-dimer Current Visit: Yes Status: Acute Onset Date: ~06/12/18 Assessment & Plan: pain and symptoms are worrisome, PE needs ruled out. has been on full dose lovenox, will get CTA since renal function improved with GFR >49 after hydration. will continue lovenox until PE ruled out. discussed with patient risk of contrast induced nephropathy but need to r/o PE and he agrees with getting scan done in spite of risk. Code(s): R79.89 - OTHER SPECIFIED ABNORMAL FINDINGS OF BLOOD CHEMISTRY (3) Pleuritic chest pain Current Visit: Yes Status: Acute Onset Date: ~06/12/18
[2018-06-13] MEDS ORDERED: NORCO 7.5/325 MG TAB PO PRN (12:28)
[2018-06-13] MEDS ORDERED: HOLD METFORMIN PRODUCTS FOR 48 HOURS MC SCH (12:30)
--- NOTE | 2018-06-13 13:25 | XRAY ---
Indication: Right-sided chest pain. Short of breath. D-dimer 2324. Multiple contiguous axial images obtained through the chest using 100 cc Isovue 370 contrast and PE protocol. Comparison: December 31, 2009. There is adequate opacification of the pulmonary arteries. Tiny nonoccluding pulmonary embolus seen in the apicoposterior segmental branch of the left upper lobe. Heart is not enlarged. Aorta is mildly arteriosclerotic without aneurysm/dissection. New prominent mediastinal lymph nodes, largest subcarinal measuring 1.8 x 4.0 cm. Also new prominent right suprahilar node measuring 3.4 x 2.0 cm. Examination of the lung parenchyma demonstrates new right upper lobe patchy airspace disease with areas of consolidation and tiny right effusion. Again chronic right hemidiaphragm elevation with worsening right middle/right lower lobe atelectasis and subsequent shift of the heart and mediastinal structures to the right. Stable tiny scattered right hemithorax calcified pleural plaquing. Stable 5 mm posterior left upper lobe irregular noncalcified nodularity favored to be benign given stability over the years. Bony thorax intact again with mild degenerative changes throughout the spine. Limited upper abdomen demonstrates stable tiny 3 mm peripheral right lobe hepatic cyst. Impression: 1. Tiny nonoccluding left upper lobe pulmonary embolus. No distal infarct. 2. New right upper lobe airspace disease with areas of consolidation and tiny effusion. 3. New mediastinal and right suprahilar adenopathy presumed reactive. 4. Chronic right hemidiaphragm elevation with worsening right middle and right lower lobe atelectasis. 5. Stable tiny right hemithorax calcified pleural plaquing. 6. Stable benign left upper lobe noncalcified micro-nodularity and tiny hepatic cyst. CT DI 28.13
[2018-06-13] MEDS: KLONOPIN PO SCH ×2 (13:38→21:26)
[2018-06-13] MEDS: Sodium Chloride 0.9% 1000 ML 1,000 ML IV SCH (14:19)
[2018-06-13] MEDS: PATIENT OWN MEDICATION OP SCH (14:20)
[2018-06-13] MEDS: NEURONTIN 300 MG PO SCH ×2 (14:20→21:23)
[2018-06-13] MEDS ORDERED: Lantus Insulin SQ SCH ×2 (18:00→22:00)
[2018-06-13] MEDS ORDERED: KLONOPIN PO SCH (22:00)
[2018-06-14] MEDS: Sodium Chloride 0.9% 1000 ML 1,000 ML IV SCH (01:06)
[2018-06-14 05:53] LABS: BASOPHIL % 0.2 % (0.0-0.4); Basophil (Absolute #) 0.01 (0-0.4); Eosinophil % 1.4 % (0.00-5.0); Eosinophil (Absolute #) 0.08 (0-0.5); Hematocrit 33.2 % (42-50); Hemoglobin 10.6 gm/dl (12.5-18.0); Lymphocyte (Absolute #) 0.95 (1.0-4.6); Lymphocytes % 16.6 % (24.0-44.0); Mean Cell Volume 89.7 fl (78-100); Mean Corpuscular Hemoglobin 28.6 pg (26-32); Mean Corpuscular Hgb Concent. 31.9 g/dl (32-36); Mean Platelet Volume 9.9 fl (6-9.5); Monocyte (Absolute #) 0.96 (0.0-1.3); Monocytes % 16.8 % (0.0-12.0); Platelet Count 264 K/mm3 (150-450); Red Cell Distribution Width 13.8 % (11.5-14.0); White Blood Count 5.7 K/mm3 (4.0-10.5)
[2018-06-14 06:35] LABS: ANION GAP 13.8 MEQ/L (5-15); Calcium 8.3 mg/dL (8.4-10.2); Creatinine 1 1.3 mg/dL (0.66-1.25); Potassium 4.1 mmol/L (3.5-5.1)
[2018-06-14] MEDS: PROVENTIL 2.5 MG/3 ML NEB IH SCH (07:12)
[2018-06-14 07:20] VITALS: O2SAT 96
[2018-06-14 07:46] VITALS: BP 137/68; PULSE 88
--- NOTE | 2018-06-14 09:29 | PCM.DS ---
Discharge Summary Date of Admission: 06/13/18 13:17 Admitting Physician: CHRISTOPHER TOBIAS Primary Care Provider: CHRISTOPHER TOBIAS Allergies Allergies No Known Drug Allergies Allergy (Verified 06/12/18 14:41) Hospital Summary - Hospital Course Hospital Course: patient arrived with pleuritic right sided chest pain, found to have pneumonia and elevated d-dimer. was on lovenox and cta confirmed a small nonoccluding thrombus in the left lung. he is painfree and feels well, no fever and not coughing and wants to go home today. - Vitals & Intake/Output Vital Signs: Vital Signs Temperature 97.8 F 06/14/18 07:45 Pulse Rate 88 06/14/18 07:45 Respiratory Rate 18 06/14/18 08:00 Blood Pressure 137/68 06/14/18 07:45 O2 Sat by Pulse Oximetry 96 06/14/18 07:45 Oxygen-Last Documented O2 Percentage 2 Liters = 28% Intake & Output: Intake & Output 06/11/18 06/12/18 06/13/18 06/14/18 11:59 11:59 11:59 11:59 Intake Total 720 1340 Output Total 175 950 Balance 545 390 Weight 98.1 kg 98 kg - Lab Result Diagrams: 06/14/18 05:22 06/14/18 05:22 Lab Results-Last 24 Hrs: Accuchecks Date 06/14/18 Date 06/13/18 Time 07:30 Time 22:00 Accucheck Value: 143 Accucheck Value: 244 Accucheck Value: 136 Accucheck Value: 191 Lab Results-Last 24 Hours 06/13/18 06/14/18 06/14/18 Range/Units 05:00 05:22 05:22 WBC 5.7 (4.0-10.5) K/mm3 RBC 3.70 L (4.1-5.6) M/mm3 Hgb 10.6 L (12.5-18.0) gm/dl Hct 33.2 L (42-50) % MCV 89.7 (78-100) fl MCH 28.6 (26-32) pg MCHC 31.9 L (32-36) g/dl RDW 13.8 (11.5-14.0) % Plt Count 264 (150-450) K/mm3 MPV 9.9 H (6-9.5) fl Gran % 65.0 (36.0-66.0) % Eos # (Auto) 0.08 (0-0.5) Absolute Lymphs (auto) 0.95 L (1.0-4.6) Absolute Monos (auto) 0.96 (0.0-1.3) Lymphocytes % 16.6 L (24.0-44.0) % Monocytes % 16.8 H (0.0-12.0) % Eosinophils % 1.4 (0.00-5.0) % Basophils % 0.2 (0.0-0.4) % Absolute Granulocytes 3.73 (1.4-6.9) Basophils # 0.01 (0-0.4) Sodium 142 (137-145) mmol/L Potassium 4.1 (3.5-5.1) mmol/L Chloride 103 (98-107) mmol/L Carbon Dioxide 29 (22-30) mmol/L Anion Gap 13.8 (5-15) MEQ/L BUN 22 H (9-20) mg/dL Creatinine 1.30 H (0.66-1.25) mg/dL Estimated GFR 56.6 ML/MIN Glucose 121 H (74-106) mg/dL Hemoglobin A1c 6.90 H (4.5-6.0) % Calcium 8.3 L (8.4-10.2) mg/dL Micro Results-Entire Visit: Microbiology 06/12/18 15:45 Blood Culture - Preliminary Blood NO GROWTH TO DATE 06/12/18 15:45 Blood Culture - Preliminary Blood NO GROWTH TO DATE Accuchecks Date 06/14/18 Date 06/13/18 Time 07:30 Time 22:00 Accucheck Value: 143 Accucheck Value: 244 Accucheck Value: 136 Accucheck Value: 191 - Radiology Exams Ordered Rad Exams-Entire Visit: Radiology Procedures Category Date Time Status CHEST 1 VIEW (PORTABLE) Stat Exams 06/12/18 15:31 Completed CHEST WITH CONTRAST [CT] Urgent Exams 06/13/18 11:13 Completed - Procedures and Test Procedures and Tests throughout Hospitalization: Therapy Orders & Screens 06/12/18 19:42 Respiratory Therapy Consult ROUTINE Comment: Reason For Exam: 06/12/18 20:40 Peak Expiratory Flow Rate ONCE Comment: Reason For Exam: Respiratory Therapy Assessment DAILY Comment: 06/13/18 01:24 Oxygen NASAL CANNULA 2 lpm Comment: Diagnosis: pneumonia, chest pain, increased d-dimer 06/13/18 02:01 Oxygen NASAL CANNULA 2 lpm Comment: Diagnosis: pneumonia, chest pain, increased d-dimer Discharge Exam General Appearance: no apparent distress, alert Skin Exam: normal color, warm, dry Eye Exam: PERRL, EOMI, eyes nml inspection Respiratory Exam: normal breath sounds, lungs clear, No respiratory distress Cardiovascular Exam: regular rate/rhythm, normal heart sounds Gastrointestinal/Abdomen Exam: soft, No tenderness, No mass Extremity Exam: normal inspection, normal range of motion Final Diagnosis/Problem List - Final Discharge Diagnosis/Problem (1) Pulmonary embolism Current Visit: Yes Status: Acute Assessment & Plan: home on eliquis (2) Pneumonia Current Visit: Yes Status: Acute Onset Date: ~06/12/18 Assessment & Plan: home on augmentin (3) Pleuritic chest pain Current Visit: Yes Status: Acute Onset Date: ~06/12/18 - Discharge Disposition: Home, Self-Care Condition: Good Prescriptions: New Amoxicillin/Potassium Clav [Augmentin 500-125 Tablet] 1 each PO TID #21 tablet Apixaban [Eliquis] 5 mg PO BID #60 tablet Continue Glimepiride 4 mg [Amaryl 4 mg] 4 mg PO DAILY Fluocinonide/Emollient Base [Fluocinonide-Emol 0.05% Cream] 60 gm BID Amitriptyline HCl 50 mg PO HS Clonazepam [Klonopin] 1 mg PO BID Metformin HCl 500 mg [Glucophage 500 MG] 500 mg PO BID Colesevelam HCl 625 mg [Welchol 625 mg] 3 tab PO BID cycloSPORINE [Restasis] 2 drops DAILY Amlodipine Bes/Olmesartan Med [Shamir 10-20 mg Tablet] 1 tab PO DAILY Insulin Glargine,Hum.rec.anlog [Lantus] 20 unit SQ EVENING MEAL Furosemide 20 mg [Lasix 20 mg] 20 mg PO DAILY Hydrocodone Bit/Acetaminophen [Hydrocodon-Acetaminoph 7.5-325] 1 each PO QIDPRN PRN PRN Reason: Pain Gabapentin [Neurontin] 300 mg PO TID Potassium Chloride 10 Meq Tab* [Klor Con 10 MEQ] 20 meq PO DAILY Enalapril/Hydrochlorothiazide [Enalapril-Hctz 10-25 mg Tablet] 1 each PO DAILY Discontinued Clopidogrel Bisulfate 75 mg [PLAVIX 75 MG Tablet] 75 mg PO DAILY Follow up with: CHRISTOPHER TOBIAS MD [Primary Care Provider] - 1 Week
[2018-06-14] MEDS: Benicar 20 MG PO SCH (09:42)
[2018-06-14] MEDS: NEURONTIN 300 MG PO SCH (09:42)
[2018-06-14] MEDS: NORVASC 5 MG PO SCH (09:42)
[2018-06-14] MEDS: ENOXAPARIN SODIUM SQ SCH (09:44)
[2018-06-14] MEDS: PATIENT OWN MEDICATION OP SCH (09:45)
[2018-06-14] MEDS: Zithromax 500 MG/ 250 ML NaCl Premix 500 MG/250 ML IVPB IV SCH (09:45)
[2018-06-14] MEDS: ROCEPHIN 1 Gm-D5w 50 ml Bag** 1 G/50 ML IVPB IV SCH (09:45)
[2018-06-14] MEDS: KLONOPIN PO SCH (09:45)
[2018-06-14] MEDS: KENALOG 0.1% CREAM 15 GM TP SCH (09:46)
[2018-06-14] MEDS ORDERED: ENALAPRIL PO SCH (10:00)
[2018-06-14] MEDS ORDERED: Vasotec 10 MG PO SCH (10:00)
[2018-06-14] MEDS ORDERED: [UNRECOGNIZED DRUG - OTHER] PO SCH (10:00)
[2018-06-14] MEDS ORDERED: HYDROCHLOROTHIAZIDE PO SCH (10:00)
== END 2018-06-14 10:25 | disposition home or self-care (01) | DRG 175 ==
LOC: ED 14:26 → UNDOADMOB 19:36 → MED SURG 19:36 → UNDOADMOB 06-13 08:30 → OBSVTOIN 06-13 08:30 → MED SURG 06-13 08:30 → OBSVTOIN 06-13 13:17 → INTOOBSV 06-13 13:17 → UNDODISIN 06-14 10:25
PROVIDERS: ADMIT Family Medicine; ATTEND Family Medicine
DX: I26.99 Other pulmonary embolism without acute cor pulmonale (principal); J18.9 Pneumonia, unspecified organism; R07.1 Chest pain on breathing; I10 Essential (primary) hypertension; R79.89 Other specified abnormal findings of blood chemistry; E11.9 Type 2 diabetes mellitus without complications; Z79.4 Long term (current) use of insulin; M19.90 Unspecified osteoarthritis, unspecified site; K21.9 Gastro-esophageal reflux disease without esophagitis; F32.9 Major depressive disorder, single episode, unspecified; Z85.828 Personal history of other malignant neoplasm of skin; Z85.820 Personal history of malignant melanoma of skin; L89.329 Pressure ulcer of left buttock, unspecified stage; Z79.899 Other long term (current) drug therapy; R07.89 Other chest pain
CPT/HCPCS: 36000; 36415; 71045; 71260; 80048; 80053; 81001; 82805; 82962; 83036; 83605; 84484; 85025; 85379; 85610; 85730; 87040; 87070; 93005; 93041; 93268; 94150; 94640; 94762; 96360; 96365; 96372; 96374; 99285; G0378; 96375; J0456; J0696; J1650; J7609; A9270-GY